=== PATIENT | male | born 1990 | race Two or more races ===

== ENCOUNTER 2021-02-26 19:48 | Emergency (ER) | payer SELFPAY ==
[~2021-02-26] VITALS: Ht 175.3 cm; Wt 99.8 kg
[2021-02-26 21:32] VITALS: BP 117/75
== END 2021-02-26 21:37 | disposition home or self-care (01) ==
LOC: ER 19:48
DX: J03.90 Acute tonsillitis, unspecified (principal); Z20.822 Contact with and (suspected) exposure to COVID-19
CPT/HCPCS: 36415; 87426